=== PATIENT | male | born 1945 | race Caucasian/White ===

== ENCOUNTER → 2018-07-18 | Outpatient (CLI) | payer OTHER ==
[~2018-07-18] MED LIST: IOPAMIDOL (ISOVUE-300) 150 ML BTL ONE
== END ==
LOC: FIMAGING 15:07
PROVIDERS: ATTEND Specialist
DX: N28.89 Other specified disorders of kidney and ureter (principal); N42.9 Disorder of prostate, unspecified
CPT/HCPCS: 74178; Q9967

== ENCOUNTER → 2018-07-23 | Outpatient (CLI) | payer OTHER | LOC: BHFA 15:30 | PROVIDERS: ATTEND Internal Medicine Cardiovascular Disease | DX: M79.609 Pain in unspecified limb (principal) ==

== ENCOUNTER 2018-12-12 07:39 | Inpatient (IN) | payer OTHER ==
[~2018-12-12 07:39] MED LIST changes: -IOPAMIDOL (ISOVUE-300) 150 ML BTL ONE; +cefOXitin SODIUM 2 GM in NS 100 ML IV ONE
[2018-12-12] MEDS ORDERED: LR 1,000 ML IV ONE (08:01)
[2018-12-12] MEDS ORDERED: LIDOCAINE 1% 2 ML INJ ONE (08:17)
--- NOTE | 2018-12-12 08:24 | PDHPUP ---
History & Physical Update H&P update statement: This history and physical update is based on an assessment of the patient which was completed after admission or registration (within 24 hours), but prior to the surgery/procedure. H&P update: no change in patient's condition since H&P completed
[2018-12-12] MEDS ORDERED: LIDOCAINE 1% 2 ML INJ ID PRN (08:28)
[2018-12-12] MEDS ORDERED: BUPIVACAINE/EPI 0.5% 30 ML SDV ONE (08:44)
[2018-12-12] MEDS ORDERED: INDOCYANINE GREEN 25 MG VIAL ONE (08:44)
[2018-12-12] MEDS ORDERED: ALBUTEROL 3 ML DEYVIAL IH PRN (08:49)
[2018-12-12] MEDS ORDERED: oxyCODONE IR 5 MG TAB PO PRN (08:49)
[2018-12-12] MEDS ORDERED: DEXAMETHASONE 4 MG/ML VIAL IVP PRN (08:49)
[2018-12-12] MEDS ORDERED: LR 500 ML IV PRN (08:49)
[2018-12-12] MEDS ORDERED: ONDANSETRON 4 MG/2 ML VIAL IVP PRN ×2 (08:49→13:20)
[2018-12-12] MEDS ORDERED: NALOXONE HCL 0.4 MG/ML INJ IVP PRN ×2 (08:49→16:34)
[2018-12-12] MEDS ORDERED: HYDROmorphONE/DILAUDID 2 MG/ML INJ IVP PRN (08:49)
[2018-12-12] MEDS ORDERED: ACETAMINOPHEN 500 MG TAB PO PRN (08:49)
[2018-12-12] MEDS ORDERED: MIDAZOLAM 2 MG/2 ML VIAL IVP ONE (08:49)
[2018-12-12] MEDS ORDERED: MIDAZOLAM 2 MG/2 ML VIAL ONE (08:49)
--- NOTE | 2018-12-12 08:51 | PDANEPAE ---
ANE History of Present Illness L Partial Nephrectomy ANE Past Medical History - Cardiovascular History Hx Hypertension: Yes Hx Arrhythmias: No Hx Chest Pain: No Hx Coronary Artery / Peripheral Vascular Disease: Yes Hx CHF / Valvular Disease: No Hx Palpitations: No Cardiovascular History Comment: CABG x 5 - Pulmonary History Hx Sleep Apnea: Yes Sleep Apnea Screening Result - Last Documented: Positive Pulmonary History Comment: SHERRILL uses CPAP - Neurologic History Hx Cerebrovascular Accident: No Hx Seizures: No Hx Dementia: No - Endocrine History Hx Diabetes: No - Renal History Hx Renal Disorders: Yes Renal History Comment: new dx of renal ca - Liver History Hx Hepatic Disorders: No - Neurological & Psychiatric Hx Hx Neurological and Psychiatric Disorders: No - Cancer History Hx Cancer: Yes Cancer History Comment: renal - Congenital Disorder History Hx Congenital Disorders: No - GI History Hx Gastrointestinal Disorders: No Gastrointestinal History Comment: none - Other Health History Other Health History: bridge fixed. bruises easily - Chronic Pain History Chronic Pain: Yes (L flank pain, neck,) - Surgical History Prior Surgeries: 10yrs ago quintuplet bypass. none since bypass. Dr Lucie XIE Review of Systems Review of Systems: - Exercise capacity METS (RN): 4 METS ANE Patient History - Allergies Allergies/Adverse Reactions: Penicillins Allergy (Verified 11/26/18 11:07) Hives - Home Medications Home Medications: Aspirin [Aspirin 81mg (*)] 81 mg PO HS 07/01/10 [Last Taken 12/07/18] Lisinopril [Zestril 40 mg (*)] 40 mg PO BID 07/01/10 [Last Taken 12/11/18] Atorvastatin Calcium [Lipitor 20 mg (*)] 20 mg PO DAILY 07/06/10 [Last Taken 03/26] Hydrochlorothiazide [HCTZ (*)] 25 mg PO DAILY 07/06/10 [Last Taken 12/10/18] Nebivolol HCl [Bystolic 5 mg (*)] 2.5 mg PO HS 07/06/10 [Last Taken 12/11/18] Cholecalciferol Vit D3 [Vitamin D3 2000 units tab (OTC)] 2,000 units PO BID [Last Taken 1 Week Ago ~12/05/18] Finasteride [Proscar 5 MG (*)] 5 mg PO HS 11/26/18 [Last Taken 12/11/18] Herbals/Supplements -Info Only 1 ea PO DAILY 11/26/18 [Last Taken 1 Week Ago ~] amLODIPine BESYLATE [Norvasc 10 mg (*)] 10 mg PO HS 11/26/18 [Last Taken ] - NPO status NPO Since - Liquids (Date): 12/11/18 NPO Since - Liquids (Time): 21:00 NPO Since - Solids (Date): 12/11/18 NPO Since - Solids (Time): 12:00 - Smoking Hx Smoking Status: Never smoked - Family Anes Hx Family Hx Anesthesia Complications: none ANE Labs/Vital Signs - Vital Signs Blood Pressure: 131/71 Heart Rate: 62 Respiratory Rate: 16 O2 Sat (%): 96 Height: 170.18 cm Weight: 83.915 kg ANE Physical Exam - Airway Neck exam: FROM Mallampati Score: Class 2 Mouth exam: normal dental/mouth exam - Pulmonary Pulmonary: clear to auscultation - Cardiovascular Cardiovascular: regular rate and rhythym - ASA Status ASA Status: III ANE Anesthesia Plan Anesthesia Plan: general endotracheal anesthesia Regional Anesthesia: TAP block
[2018-12-12] MEDS ORDERED: fentaNYL 100 MCG/2 ML INJ ONE ×3 (08:52→14:04)
[2018-12-12] MEDS ORDERED: PROPOFOL 200 MG/20 ML VIAL ONE (08:53)
[2018-12-12] MEDS ORDERED: ROCURONIUM 50 MG/5 ML VIAL ONE (08:54)
[2018-12-12] MEDS ORDERED: VASOPRESSIN 20 UNIT/ML VIAL ONE (09:18)
[2018-12-12] MEDS ORDERED: RANITIDINE 50 MG/2 ML VIAL ONE (09:35)
[2018-12-12] MEDS ORDERED: ONDANSETRON 4 MG/2 ML VIAL ONE ×2 (09:35→13:01)
[2018-12-12] MEDS ORDERED: DEXAMETHASONE 4 MG/ML VIAL ONE ×2 (09:35)
[2018-12-12] MEDS ORDERED: ePHEDrine SULFATE 25 MG/5 ML SYR ONE (09:47)
[2018-12-12] MEDS ORDERED: ROCURONIUM 100 MG/10 ML VIAL ONE (09:53)
[2018-12-12] MEDS ORDERED: THROMBIN(HUM PLAS)/FIBRINOG/CA 5 ML VIAL TP ONE (11:06)
[2018-12-12] MEDS ORDERED: SURGIFLO MATRIX KIT WITH THROMBIN 8 ML TP ONE (12:06)
[2018-12-12] MEDS ORDERED: ROPIVACAINE HCL 150 MG/30 ML INJ ONE (12:45)
[2018-12-12] MEDS ORDERED: cefOXitin SODIUM 1 GM in NS 50 ML IV ONE (13:00)
[2018-12-12] MEDS ORDERED: SUGAMMADEX SODIUM 200 MG/2 ML VIAL IVP ONE (13:15)
--- NOTE | 2018-12-12 13:16 | POSTOPPROG ---
Post Op Note Date of Operation: 12/15/18 Surgeon: Charles Long (# [id number]) Anesthesia: GET(General Endotracheal) Pre-op Diagnosis: Left renal mass Post-op Diagnosis: Left renal mass Procedure: Robotic left radical nephrectomy Findings: See op note Inf/Abcess present in the surg proc area at time of surgery?: No EBL: 100-500 (200 cc) Complications: None Specimen(s): 1. Perirenal fat overlying tumor 2. Left kidney and proximal ureter
[2018-12-12] MEDS ORDERED: PROMETHAZINE HCL 25 MG/ML INJ IVP PRN (13:20)
[2018-12-12] MEDS ORDERED: HYDROmorphONE/DILAUDID 1 MG/ML INJ IVP PRN (13:20)
[2018-12-12] MEDS ORDERED: D5W 1/2 NS 1,000 ML IV SCH (13:30)
--- NOTE | 2018-12-12 13:45 | POSTANESTH ---
Post Anesthetic Evaluation Cardiovascular Status: Normal, Stable Respiratory Status: Normal, Stable Level of Consciousness/Mental Status: Moderately Sleepy Pain Control: Adequate, Prn Tx Ordered Nausea/Vomiting Control: Adequate, Prn Tx Ordered Complications Possibly Related to Anesthesia: None Noted
[2018-12-12] MEDS: fentaNYL 100 MCG/2 ML INJ IVP PRN ×2 (14:07→14:14)
[2018-12-12] MEDS ORDERED: ROPIVACAINE HCL 100 MG/20 ML INJ ONE (14:20)
--- NOTE | 2018-12-12 14:50 | PDMN ---
Medical Necessity Medical necessity: [facility] IP only surgery; [id number] L Radical Nephrectomy
[2018-12-12] MEDS: HYDROmorphONE/DILAUDID 6 MG/30 ML PCA IV PRN (16:52)
[2018-12-12] MEDS: NEBIVOLOL HCL 5 MG TAB PO SCH (20:54)
[2018-12-12] MEDS: FINASTERIDE 5 MG TAB PO SCH (20:54)
[2018-12-12] MEDS: LISINOPRIL 40 MG TAB PO SCH (20:54)
[2018-12-12] MEDS: cefOXitin SODIUM 2 GM in NS 100 ML IV SCH (20:54)
[2018-12-13] MEDS: D5W 1/2 NS W/ 20 KCl/L 1,000 ML IV SCH ×3 (00:43→17:48)
[2018-12-13] MEDS: cefOXitin SODIUM 2 GM in NS 100 ML IV SCH (03:16)
--- NOTE | 2018-12-13 08:34 | SOAPPROG ---
SOAP Progress Note Assessment/Plan: Assessment: POD 1 s/p robotic left radical nephrectomy - stable Plan: 1. Ambulate. 2. Clear liquid diet. 3. Remove Parks. 4. Recheck labs in AM. 12/13/18 08:35 12/13/18 08:47 Objective: Vital Signs Temp Pulse Resp BP Pulse Ox 37.0 C 51 L 16 104/56 L 95 12/13/18 08:00 12/13/18 08:00 12/13/18 08:00 12/13/18 08:00 12/13/18 08:00 Laboratory Results 12/13/18 04:12 12/13/18 04:12 12/12/18 12/13/18 12/14/18 05:59 05:59 05:59 Intake Total 3980 Output Total 1375 Balance 2605 Physical Exam - Physical Exam General Appearance: WD/WN, alert, no apparent distress Abdomen: distended, other (incisions c/d/i; mild tenderness diffusely (greatest in LUQ)) Male Genitalia: other (urine clear via Parks) Skin: normal color, warm/dry Extremities: non-tender Neuro/Psych: alert, normal mood/affect ICD10 Worksheet Patient Problems: Problems Problem Status Onset Left renal mass Acute - ICD10 Problem Qualifiers (1) Left renal mass
[2018-12-13] MEDS: HYDROCHLOROTHIAZIDE 25 MG TAB PO SCH (09:37)
[2018-12-13] MEDS: LISINOPRIL 40 MG TAB PO SCH ×2 (09:37→20:14)
[2018-12-13] MEDS: ATORVASTATIN CALCIUM 20 MG TAB PO SCH (09:38)
[2018-12-13] MEDS: HYDROmorphONE/DILAUDID 6 MG/30 ML PCA IV PRN (20:15)
[2018-12-13] MEDS: NEBIVOLOL HCL 5 MG TAB PO SCH (20:22)
[2018-12-13] MEDS: FINASTERIDE 5 MG TAB PO SCH (20:24)
[2018-12-14] MEDS: HYDROCHLOROTHIAZIDE 25 MG TAB PO SCH (08:04)
[2018-12-14] MEDS: LISINOPRIL 40 MG TAB PO SCH ×2 (08:04→21:46)
[2018-12-14] MEDS: ATORVASTATIN CALCIUM 20 MG TAB PO SCH (08:04)
[2018-12-14] MEDS: D5W 1/2 NS W/ 20 KCl/L 1,000 ML IV SCH (10:25)
[2018-12-14] MEDS: PHENAZOPYRIDINE HCL 200 MG TAB PO SCH ×2 (10:43→17:24)
--- NOTE | 2018-12-14 13:01 | SOAPPROG ---
SOAP Progress Note Assessment/Plan: Assessment: 1. POD 2 s/p robotic left radical nephrectomy - stable 2. Dysuria. Plan: 1. Strongly encouraged to ambulate several times in the halls each day. 2. Advance diet and encouraged to drink plenty of water. 3. Switch to oral narcotics and d/c BOBBIN DRIER. 4. Recheck chem panel in AM. 5. Start prophylactic Bactrim DS for UTI (although UA appears fairly bland). Culture pending. Continue Pyridium for dysuria. Subjective: Complains of upper abdominal pain, although improved from yesterday. Main complaint is severe dysuria and some urgency. Having lots of flatus. Objective: Vital Signs Temp Pulse Resp BP Pulse Ox 36.7 C 58 L 20 135/75 H 94 12/14/18 12:00 12/14/18 12:00 12/14/18 12:00 12/14/18 12:00 12/14/18 12:00 Laboratory Results 12/14/18 05:00 12/14/18 05:00 12/13/18 12/14/18 12/15/18 05:59 05:59 06:59 Intake Total 3980 1530 Output Total 1375 950 150 Balance 2605 580 -150 Physical Exam - Physical Exam General Appearance: WD/WN, alert, no apparent distress Abdomen: distended (decreased compared to yesterday), other (incisions c/d/i) Male Genitalia: other (moderate penile glanular tenderness, but visually normal) Skin: normal color, warm/dry Extremities: non-tender, normal inspection Neuro/Psych: alert, normal mood/affect ICD10 Worksheet Patient Problems: Problems Problem Status Onset Left renal mass Acute - ICD10 Problem Qualifiers (1) Left renal mass
[2018-12-14] MEDS: SULFAMETHOX/TMP 800/160 MG 1 TAB PO SCH ×2 (15:51→21:46)
[2018-12-14] MEDS: OXYCODONE/APAP 5/325 TAB PO PRN (15:51)
[2018-12-14] MEDS: NEBIVOLOL HCL 5 MG TAB PO SCH (21:46)
[2018-12-14] MEDS: FINASTERIDE 5 MG TAB PO SCH (21:46)
[2018-12-15] MEDS: PHENAZOPYRIDINE HCL 200 MG TAB PO SCH ×3 (09:07→17:20)
[2018-12-15] MEDS: ATORVASTATIN CALCIUM 20 MG TAB PO SCH (09:08)
[2018-12-15] MEDS: LISINOPRIL 40 MG TAB PO SCH (12:03)
[2018-12-15] MEDS: SULFAMETHOX/TMP 800/160 MG 1 TAB PO SCH (12:04)
[2018-12-15] MEDS: HYDROCHLOROTHIAZIDE 25 MG TAB PO SCH (13:35)
[2018-12-15] MEDS: SULFAMETHOX/TMP 400/80 MG 1 TAB PO SCH ×2 (13:35→20:53)
--- NOTE | 2018-12-15 13:41 | SOAPPROG ---
SOAP Progress Note Assessment/Plan: Assessment: 1. POD 3 s/p robotic left radical nephrectomy - improving. He doesn't feel ready to go home yet, and I am in agreement with that. 2. Dysuria: improving. Plan: 1. Reminded to ambulate several times in the halls each day. 2. Encouraged to eat more and continue to drink plenty of water. 3. Continue oral narcotics prn. 4. Per pharmacy recs due to his creatinine clearance, Bactrim decreased to SS & lisinopril to once daily. Continue Pyridium for dysuria. Subjective: Improving. Objective: Vital Signs Temp Pulse Resp BP Pulse Ox 37.3 C 54 L 16 122/70 H 95 12/15/18 08:00 12/15/18 08:00 12/15/18 08:00 12/15/18 08:00 12/15/18 08:00 Laboratory Results 12/14/18 05:00 12/15/18 04:20 12/14/18 12/15/18 12/16/18 04:59 05:59 05:59 Intake Total Output Total 320 Balance -320 Physical Exam - Physical Exam General Appearance: WD/WN, alert, no apparent distress Abdomen: soft (decreased distention; incisions c/d/i) Male Genitalia: normal genitalia Skin: normal color, warm/dry Extremities: non-tender Neuro/Psych: alert ICD10 Worksheet Patient Problems: Problems Problem Status Onset Left renal mass Acute - ICD10 Problem Qualifiers (1) Left renal mass
--- NOTE | 2018-12-15 16:50 | ASMTCMCOM ---
CM Note CM Note Notes: Patient chart reviewed. 73 year old male s/p left nephrectomy. He lives alone in [place]. Cleared per PT. CM will offer "[facility]" Information. CM to follow for needs. plan: Likely home when medically cleared for discharge. Pt was admitted for planned L radical nephrectomy. He is POD 2. He lives alone in [place]. Date Signed: 12/15/2018 04:49 PM Electronically Signed By:Ghada Kirkpatrick RN
[2018-12-15] MEDS: NEBIVOLOL HCL 5 MG TAB PO SCH (20:53)
[2018-12-15] MEDS: FINASTERIDE 5 MG TAB PO SCH (20:53)
--- NOTE | 2018-12-15 21:16 | GOP ---
[f rep st] OPERATIVE REPORT DATE OF OPERATION: 12/12/2018 SURGEON: Charles Long MD ELECTION JUDGE: Jasmyn Salas CFA. ANESTHESIA: General endotracheal. PREOPERATIVE DIAGNOSIS: Abnormal left renal mass. POSTOPERATIVE DIAGNOSIS: Abnormal left renal mass. PROCEDURE PERFORMED: Robotically-assisted left radical nephrectomy and partial ureterectomy. FINDINGS: Approximately 2.5-3 cm abnormal partially exophytic superomedial solid left renal mass that was very close to the superior margin of the renal vein and vascular hilum. SPECIMENS: Left kidney and proximal ureter. ESTIMATED BLOOD LOSS: Approximately 200 cc. INDICATIONS: This gentleman was diagnosed with a solid enhancing left renal mass. He presents for operative management at this time. The indications for the procedures, as well as potential risks and complications were discussed with the patient preoperatively. He appeared to understand, his questions were answered, and he wished to proceed. Written informed surgical consent was thereafter obtained. DESCRIPTION OF PROCEDURE: The patient was brought to the operating room and administered general endotracheal anesthesia. He was carefully placed in the left flank up position approximately 40 degrees with a triangular pad behind his back. The patient was placed over the break of the table and the table was flexed approximately 15-20 degrees. The patient's right leg was flexed at the knee, and kept under a straight left leg with pillows in between them. A Parks catheter was placed to gravity drainage successfully. The patient's left arm was kept in a neutral position along his side in a foam trough while the right arm was kept abducted less than 90 degrees on an arm board. The patient was then thoroughly secured to the table with several strips of wide tape from head to toe. The patient's stability on the table was then confirmed by tilting to maximum right and left positions. Patient stability on the table was confirmed. The abdomen was sterilely prepped and draped in standard fashion utilizing Ioban. I gained intraabdominal access along the left midclavicular line, approximately usp between the xiphoid process and the umbilicus, with a Veress needle. The abdomen was insufflated to 15 mmHg pressure which was the intra-abdominal pressure maintained throughout the majority of the case. The remaining port sites were then placed and are as follows: An 8 mm robotic port placed approximately 8 cm above the camera port. While staying in the midclavicular line, an 8 mm robotic port placed 8 cm below the camera port along the left midclavicular line, and a 4th 8 mm robotic port placed approximately 8 cm below the previously placed robotic port again while staying in the left midclavicular line, and a 12 mm veterinary technician assistant port placed in the midline just below the umbilicus. It should be mentioned that the initially placed 8 mm robotic port was used for the camera port location. The 0 degree robotic camera was used throughout the remainder of the case. All ports were placed under direct vision without complication. The patient was then placed in the left flank up position approximately 90 degrees. The da Katey XI robot was then docked in standard fashion. The appropriate robotic arms were secured to the respective ports. I then left the patient's bedside and entered the surgeon's robotic console. I began the robotic portion of the procedure by mobilizing the left colon off the lateral abdominal wall and reflected it medially across the midline. The splenic flexure was mobilized and this mobilization continued distally to the level of the spermatic cord and iliac vessels. Underlying Gerota's fascia and perinephric fat were then identified. I continued my dissection medially at the level of the renal hilum until I was able to identify the renal vein. The gonadal vein was identified as well. I continued my dissection caudal to the kidney in a medial fashion until I was able to identify the ureter and gonadal vein. These were retracted in a cephalad fashion in order to further expose the underlying psoas musculature and its investing fascia. I then continued my dissection medially, staying above the psoas muscle, until I reached the renal hilum. I then carefully dissected the renal hilum in order to identify all the vasculature at this location. I was able to identify the aorta clearly. The adrenal vein was identified coming off the left renal vein and it was ligated with surgical clips and divided with scissors. The gonadal vein was identified and dealt with in an identical fashion. I spent a considerable amount of time trying to identify the location of the renal artery. The renal artery ultimately was present along the superior edge of the renal vein, but very deep to it. In fact, the renal artery was much deeper than I would abnormally encounter in these cases. A 2nd renal artery also appeared to be present that was smaller and located just caudal to the primary renal artery. I was able to carefully dissect the hilum and no other significant vasculature was identified. A few small perforating veins in the hilum were seen and these were ligated with bipolar cautery in order to avoid avulsion and bleeding from them. A couple small perforating veins along the renal vein were also dealt with in a similar fashion. I then turned my attention to identifying the location of the left renal tumor. Based on preoperative imaging, the tumor was along the posterior aspect of the superior pole of the kidney medially and measured approximately 2.5 cm. I then stripped all the perinephric fat away from the capsule of the kidney circumferentially. I was ultimately able to identify the location of the tumor. As it turned out, the tumor was located very close to the superior aspect of the renal hilum. The initial plans were to perform a partial nephrectomy. But in order to take an adequate surrounding margin of grossly normal renal parenchyma, this would require cutting into the top of the left renal vein and into the primary hilum. As a result, I was concerned that the remaining portion of kidney would not remain viable with attempted partial nephrectomy. As a result, I decided to proceed, after considerable thought, with radical nephrectomy. Therefore, the renal hilum was ligated with a 60 mm linear vascular stapler. Several additional applications of the vascular stapler were used to ligate the superomedial attachments to the kidney, as well as the splenorenal ligament tissue. The adrenal gland was left in situ. I then dissected the kidney circumferentially from the surrounding tissue using electrocautery and the vascular stapler as necessary. The previously dissected perirenal fat was included with the specimen. The tissue caudal to the kidney, including the ureter, were ligated with an application of the linear vascular stapler. At this point, the kidney was completely free and placed in the pelvis to be later retrieved in a specimen bag. It should be mentioned that there was no obvious gross extrarenal extension of any type of cancerous process. There was no hilar adenopathy appreciated. I then carefully inspected the spleen and renal hilum. The operative space was noted to be hemostatic, with the exception of a very slight venous ooze from the region of the base of the adrenal gland. I placed some Surgicel, followed by Evicel, at this location. Evicel was also placed along the location of the ligated renal hilum. At this point, hemostasis was excellent, and this was confirmed with the intraabdominal pressure decreased to 5 mmHg pressure. The kidney and the associated perirenal fat were then placed in a 15 mm specimen bag through the veterinary technician assistant port (after exchanging the 12 mm laparoscopic veterinary technician assistant port for a 15 mm port). This completed the robotic portion of the procedure. I then returned to the patient's bedside. The 15 mm veterinary technician assistant port site was then extended slightly in a caudal direction with a scalpel and electrocautery in order to allow for delivery of the specimen bag. Once this was done, the anterior rectus fascia at this location was reapproximated with a running 0 Vicryl suture, followed by cauterization of the subcutaneous tissue, followed by reapproximation of the skin at all incision sites with running 4-0 Monocryl suture in a subcuticular fashion. A total of 30 cc of 0.5% Marcaine with epinephrine was used for local anesthetic. All the incisions were then dressed on the skin surface with Dermabond. Before awakening the patient, Anesthesia then performed a TAP block. The patient was awakened, extubated, transferred to his bed, then taken to the recovery room. He tolerated the procedure well overall. COMPLICATIONS: None. DISPOSITION: The patient was transferred to the recovery room in stable condition. He will be admitted for postoperative care. /[id number]/MODL MTDD
[2018-12-16] MEDS: PHENAZOPYRIDINE HCL 200 MG TAB PO SCH ×2 (07:42→12:24)
[2018-12-16] MEDS: OXYCODONE/APAP 5/325 TAB PO PRN (07:44)
[2018-12-16] MEDS: HYDROCHLOROTHIAZIDE 25 MG TAB PO SCH (07:44)
[2018-12-16] MEDS: ATORVASTATIN CALCIUM 20 MG TAB PO SCH (07:44)
[2018-12-16] MEDS ORDERED: LISINOPRIL 40 MG TAB PO SCH (09:00)
[2018-12-16] MEDS: SULFAMETHOX/TMP 400/80 MG 1 TAB PO SCH (10:36)
[2018-12-16 12:53] VITALS: BP 100/65
--- NOTE | 2018-12-16 14:09 | SOAPPROG ---
SOAP Progress Note Assessment/Plan: Assessment: 1. POD 4 s/p robotic left radical nephrectomy - doing well. Ready for discharge. 2. Dysuria: improving. Plan: 1. Discharge home. 2. Per pharmacy recs due to his creatinine clearance, will continue on SS Bactrim for 3 more days and continue Pyridium for dysuria. (d/c summ. # [id number]) Subjective: No complaints. Doing well. Dysuria essentially resolved. Objective: Vital Signs Temp Pulse Resp BP Pulse Ox 36.7 C 47 L 16 100/65 92 12/16/18 12:52 12/16/18 12:52 12/16/18 12:52 12/16/18 12:52 12/16/18 12:52 Microbiology 12/14/18 10:15 Urine Culture - Final Urine,Clean Catch Laboratory Results 12/14/18 05:00 12/15/18 04:20 12/15/18 12/16/18 12/17/18 05:59 05:59 05:59 Intake Total 600 450 Output Total 320 200 Balance 280 250 Physical Exam - Physical Exam General Appearance: WD/WN, alert, no apparent distress Abdomen: non-tender, soft, other (incisions c/d/i) Male Genitalia: normal genitalia Skin: warm/dry Extremities: non-tender Neuro/Psych: alert, normal mood/affect, oriented x 3 ICD10 Worksheet Patient Problems: Problems Problem Status Onset Left renal mass Acute - ICD10 Problem Qualifiers (1) Left renal mass
--- NOTE | 2018-12-16 14:40 | ASMTCMCOM ---
CM Note CM Note Notes: Met with patient to confirm there are no CM needs. Patient lives at home independently but has good support from friends. He has been cleared by stefani RN in agreement with plan. Contact info provided for [facility], patient plans on calling to get meals set-up. CM available should further needs arise. Plan: Independent Date Signed: 12/16/2018 02:37 PM Electronically Signed By:Glenda Bolanos RN
--- NOTE | 2018-12-16 14:41 | ASMTLACE ---
LACE Length of stay for Answers: 4-6 days current admission Acuity / Level of Answers: Yes Care: Did the patient have an inpatient admission? Comorbidities - select Answers: Any tumor (including all that apply lymphoma or leukemia) Coronary Artery Disease Opioid dependence / Chronic pain Other Notes: HTN # of Emergency department Answers: 0 visits in the last 6 months Score: 16 Date Signed: 12/16/2018 02:37 PM Electronically Signed By:Glenda Bolanos RN
--- NOTE | 2018-12-20 15:32 | PQFORM ---
PHYSICIAN QUERY FORM Needs Your Response This query form is being sent to you to assure this patient record is coded properly. Please respond to the question below: CANAL EQUIPMENT MECHANIC QUESTION: Dear Dr. Long, Pathology report is stating the findings of left kidney nephrectomy is " Renal cell carcinoma." After study, do you agree with this diagnosis? __XX___Yes No Other more appropriate diagnosis Clinically unable to determine Thank you [facility] [place] [facility]oding [facility] INSTRUCTIONS FOR RESPONSE: Answer question by clicking on the "Edit Document" button. Move cursor to area below the stars. When complete, hit "Save." Click on the "Sign" button, then click "Sign" again. Type in your PIN and hit "Enter." YES MTDD
--- NOTE | 2019-01-08 19:04 | GDS ---
[f rep st] DISCHARGE SUMMARY ADMIT DIAGNOSIS: Left renal mass. DISCHARGE DIAGNOSIS: Left renal mass. PROCEDURES: Robotically-assisted left radical nephrectomy and partial ureterectomy on 12/12/2018. HOSPITAL COURSE: Refer to the operative report for details regarding the procedure. Postoperatively, the patient progressed slightly slower than typical. He had more pain than I would typically expect to find in a patient undergoing this surgery. His pain was relatively well controll ed with initial parenterally analgesics. Parks catheter was removed on postoperative day 1. The pat ient experienced significant dysuria thereafter. Urine culture was sent and the results were negativ e for infection. Nonetheless, the patient was started on a urinary analgesic as well as Bactrim sing le strength during hospitalization. The dysuria promptly resolved. The patient was gradually ambula ting by postoperative day 2. He was started on a clear liquid diet around the same time, then advanc ed to a regular diet eventually which he tolerated well. His postoperative vital signs were stable, and he was afebrile during the remainder of the hospitalization. His postoperative laboratory work a lso was stable. The patient's creatinine level shelbie down at approximately 1.9 around the time of di scharpamela. His physical exam is otherwise unremarkable. All incisions were clean, dry, and intact. He was deem ed ready for discharge on postoperative day 4. He is being discharged on activity restriction instru ctions which were detailed to him. He is to continue regular diet. He is being discharged on Bactri m single strength for 3 more days as well as oxycodone 5 mg p.r.n. pain. The patient has been instru cted to return to the office in 3-4 weeks. Pathology results were pending at the time of discharge. /[id number]/MODL
== END 2018-12-16 15:42 | disposition home or self-care (01) | DRG 658 ==
LOC: F1N 07:39
PROVIDERS: ADMIT Specialist; ATTEND Specialist
DX: C64.2 Malignant neoplasm of left kidney, except renal pelvis (principal); N40.1 Benign prostatic hyperplasia with lower urinary tract symptoms; I10 Essential (primary) hypertension; Z95.1 Presence of aortocoronary bypass graft; G47.33 Obstructive sleep apnea (adult) (pediatric)
CPT/HCPCS: 97116-GP; 97161-GP; J0694; J1100; J1170; J2250; J2405; J2704; J2780; J2795; J3010